=== PATIENT | female | born 1985 | race Caucasian/White ===

== ENCOUNTER → 2016-10-21 | Outpatient (CLI) | payer OTHER | LOC: FIMAGING 10:03 | PROVIDERS: ATTEND Physician Assistant | DX: M54.5 Low back pain (principal); M53.3 Sacrococcygeal disorders, not elsewhere classified; M54.2 Cervicalgia; M51.37 Other intervertebral disc degeneration, lumbosacral region; M43.02 Spondylolysis, cervical region; R93.7 Abnormal findings on diagnostic imaging of other parts of musculoskeletal system ==